=== PATIENT | female | born 1955 | race Caucasian/White ===

== ENCOUNTER 2017-06-04 12:23 | Day surgery (SDC) | payer BC ==
--- NOTE | 2017-05-31 11:42 | RADIOLOGY REPORT (SQ) ---
EXAM DESCRIPTION: CHEST PA/LATERAL COMPLETED DATE/TIME: 05/31/2017 11:31 am REASON FOR STUDY: PRE OP COMPARISON: None. EXAM PARAMETERS: NUMBER OF VIEWS: two views TECHNIQUE: Digital Frontal and Lateral radiographic views of the chest acquired. RADIATION DOSE: NA LIMITATIONS: none FINDINGS: LUNGS AND PLEURA: No opacities, masses or pneumothorax. No pleural effusion. MEDIASTINUM AND HILAR STRUCTURES: No masses or contour abnormalities. HEART AND VASCULAR STRUCTURES: Heart normal size. No evidence for failure. BONES: No acute findings. HARDWARE: None in the chest. OTHER: No other significant finding. IMPRESSION: NO SIGNIFICANT RADIOGRAPHIC FINDING IN THE CHEST. TECHNICAL DOCUMENTATION: JOB ID: [id number] [employer]- All Rights Reserved
[2017-05-31 11:47] LABS: ABSOLUTE EOSINOPHILS # (AUTO) 0.1 10^3/uL (0.0-0.6); ABSOLUTE LYMPHOCYTES (AUTO) 2.1 10^3/uL (0.5-4.7); ABSOLUTE MONOCYTES (AUTO) 0.6 10^3/uL (0.1-1.4); ABSOLUTE NEUT (AUTO) 3.3 10^3/uL (1.7-8.2); BASOPHILS % (AUTO) 0.5 % (0-2); EOSINOPHILS % (AUTO) 1.6 % (0-6); HEMATOCRIT 37.2 % (36.0-47.0); HEMOGLOBIN 12.5 g/dL (12.0-15.5); HGB HCT DIFFERENCE 0.3; LYMPHOCYTES % (AUTO) 33.6 % (13-45); MEAN CORPUSCULAR HEMOGLOBIN 31.3 pg (27.0-33.4); MEAN CORPUSCULAR HGB CONC 33.7 g/dL (32.0-36.0); MEAN CORPUSCULAR VOLUME 93 fl (80-97); MONOCYTES % (AUTO) 10.4 % (3-13); RED CELL DISTRIBUTION WIDTH 12.8 % (11.5-14.0); SEGMENTED NEUTROPHILS % (AUTO) 53.9 % (42-78); WHITE BLOOD COUNT 6.1 10^3/uL (4.0-10.5)
[2017-05-31 12:02] LABS: APPEARANCE,URINE CLOUDY; BILIRUBIN,URINE NEGATIVE (NEGATIVE); GLUCOSE, URINE NEGATIVE (NEGATIVE); KETONES,URINE NEGATIVE (NEGATIVE); LEUKOCYTE ESTERASE,URINE SMALL (NEGATIVE); NITRITE,URINE NEGATIVE (NEGATIVE); PROTEIN,URINE NEGATIVE (NEGATIVE); URINE SPECIFIC GRAVITY 1.023; UROBILINOGEN,URINE NEGATIVE mg/dL (<2.0)
[2017-05-31 12:11] LABS: ANION GAP 12 (5-19); BLOOD UREA NITROGEN 18 mg/dL (7-20); CALCIUM 9.7 mg/dL (8.4-10.2); CARBON DIOXIDE 27 mmol/L (22-30); CHLORIDE 99 mmol/L (98-107); CREATININE RESULT 0.65 mg/dL (0.52-1.25); GLUCOSE 83 mg/dL (75-110); SODIUM 138.1 mmol/L (137-145)
--- NOTE | 2017-05-31 20:24 | EKG REPORT ---
SEVERITY:- OTHERWISE NORMAL ECG - SINUS RHYTHM LEFT AXIS DEVIATION : Confirmed by: Hayden Evans MD 31-May-2017 20:24:06
[~2017-06-04 12:23] MED LIST: CEFAZOLIN 2 GM/D5W RTU 2 GM/50 ML RTUPB IV PRN; CEFAZOLIN SODIUM 2 GM in DEXTROSE 5%-WATER 100 ML IV PRN; LACTATED RINGERS 1000 ML IV PRN; LIDOCAINE 0.5% INJ-PF (5 MG/ML) 50 ML SDV SUBCUT PRN
[2017-06-04] MEDS ORDERED: BUPIVACAINE HCL 0.5 % INJ/PF 30 ML SDV ONE (13:00)
[2017-06-04] MEDS ORDERED: MIDAZOLAM 2 MG/2 ML INJ ONE (14:11)
[2017-06-04] MEDS ORDERED: FENTANYL CITRATE INJ/PF 100 MCG/2 ML AMPUL ONE ×2 (14:11)
[2017-06-04] MEDS ORDERED: PROPOFOL INJ 200 MG/20 ML VIAL IV ONE ×2 (14:12→15:10)
[2017-06-04] MEDS ORDERED: ONDANSETRON HCL INJ/PF 4 MG/2 ML SDV ONE (14:12)
[2017-06-04] MEDS ORDERED: LIDOCAINE 0.5% INJ-PF (5 MG/ML) 50 ML SDV ONE (14:49)
[2017-06-04] MEDS ORDERED: FENTANYL CITRATE INJ/PF 100 MCG/2 ML AMPUL IV PRN ×2 (15:13)
[2017-06-04] MEDS ORDERED: MORPHINE SULFATE 10 MG/ML INJ IV PRN (15:13)
[2017-06-04] MEDS ORDERED: PROMETHAZINE HCL INJ 25 MG/1 ML VIAL IV PRN (15:13)
[2017-06-04] MEDS ORDERED: MEPERIDINE HCL/PF INJ 25 MG/1 ML DISP.SYRIN IV PRN (15:13)
[2017-06-04] MEDS ORDERED: DIPHENHYDRAMINE HCL 50 MG/ML VIAL IV PRN (15:13)
--- NOTE | 2017-06-04 16:08 | Brief Operative Note ---
BRIEF OPERATIVE REPORT DATE OF SURGERY: 06/04/17 TIME OF SURGERY: 16:07 PREOPERATIVE DIAGNOSIS: Left Ring Proximal Phalanx Intraarticular Fracture POSTOPERATIVE DIAGNOSIS: Same SURGEON: ERIKA MARCIAL FINDINGS: Articular Surface Remained intact COMPLICATIONS: None ESTIMATED BLOOD LOSS: Minimal TISSUE REMOVED OR ALTERED: None TECHNICAL PROCEDURE: ORIF Left Ring Intra-articular Proximal Phalanx Fracture
[2017-06-04] MEDS ORDERED: HYDROMORPHONE HCL INJ/PF 2 MG/ML AMPULE IV PRN (16:10)
[2017-06-04] MEDS ORDERED: OXYCODONE-ACETAMINOPHEN 5-325 MG TABLET PO PRN (16:10)
[2017-06-04] MEDS ORDERED: ONDANSETRON HCL INJ/PF 4 MG/2 ML SDV IV PRN (16:10)
--- NOTE | 2017-06-04 16:10 | PDOC DISCHARGE SUMMARY ---
Discharge Summary (SDC) - Discharge Final Diagnosis: ORIF Ring Proximal Phalanx Fracture Date of Surgery: 06/04/17 Discharge Date: 06/04/17 Condition: Good Treatment or Instructions: Schedule Follow Up w/ Dr. John Ibanez @ [facility] for Surgery to be seen in 10-14 days or as scheduled [place]: [place]: [place]: Keep splint clean/dry/intact. Ice and elevate May begin finger range of motion of small, index and thumb Stool softener of choice when on pain medication. Prescriptions: Oxycodone HCl/Acetaminophen [Percocet 5-325 mg Tablet] 1 - 2 tab PO ASDIR PRN # 40 tablet PRN Reason: Discharge Diet: As Tolerated Respiratory Treatments at Home: Deep Breathing/Coughing Discharge Activity: No Lifting Over 10 Pounds, No Lifting/Push/Pulling Report the Following to Your Physician Immediately: Fever over 101 Degrees, Redness, Swelling, Warmth, Increased Soreness
[2017-06-04 17:34] VITALS: BP 158/96
--- NOTE | 2017-06-04 17:47 | Operative Report ---
Operative Report DATE OF SURGERY: 06/04/17 PREOPERATIVE DIAGNOSIS: Left Ring Proximal Phalanx Intraarticular Fracture POSTOPERATIVE DIAGNOSIS: Same OPERATION: ORIF Left Ring Intra-articular Proximal Phalanx Fracture SURGEON: ERIKA MARCIAL ANESTHESIA: GA TISSUE REMOVED OR ALTERED: None ESTIMATED BLOOD LOSS: Minimal INTRAOPERATIVE FINDINGS: Articular Surface Remained intact PROCEDURE: Indication for above procedure: 61-year-old female who sustained a injury to her left ring finger. She was initially set up for operative intervention but subsequently canceled surgery. She obtained a second opinion because of increased and continued pain at that point she was sent back to me for further evaluation and treatment. We discussed treatment options including arthrodesis versus arthroplasty the joint decision was made to proceed with operative treatment which would likely be salvage procedure although patient was in agreement if internal fixation can be accomplished this would also be performed. Procedure In Detail: Patient was seen and evaluated in the preoperative holding area. The upper extremity was initialized and marked. Patient received 2g of Ancef IV for bacterial prophylaxis. Patient was taken back to the operative room where transferred to the operative table and placed under MAC anesthesia. Once they were adequately anesthetized a surgical team debriefing was performed ensuring all instrumentation was available, the surgical procedure was discussed with possible concerns reviewed. Under sterile technique a digital block was performed utilizing 10 cc of 50: 50 mixture of 0.5% Marcaine and 1% lidocaine without epinephrine. The upper extremity was prepped with chlorhexidine and alcohol and draped in a sterile fashion. A timeout was done identifying correct patient, procedure and extremity everyone in attendance agree with this and verbalized no concerns. The extremity was exsanguinated the tourniquet was inflated to 250 mmHg. Curvilinear skin incision was made over the PIP joint of the ring finger. Blunt dissection was performed any peripheral vasculature was carefully coagulated with bipolar cautery. I then elevated the skin flap and secured it with 4-0 nylon suture. The extensor mechanism was then split midline and retracted radially and ulnarly. I was then able to expose the articular surface. Patient had 3 main fragments with maintained articular surface and bony attachments proximally. Given this finding I felt patient would be better served with attempted open reduction internal fixation and if this failed could proceed with fusion in the future but ultimately internal fixation goes on to successful bone healing and she is likely to have better pain relief and function. I then proceeded with internal fixation. With a [place] elevator I carefully elevated the articular fragments there was some areas of callus and bone healing was provided more stability of the fracture fragments. I did not attempt to completely free the fracture fragments to avoid possible postoperative avascular necrosis. The radial and ulnar condyles within reduced and a 0.026 K wire was placed from the ulnar to the radial direction. I then placed a second 0.026 K wire from the dorsal articular surface into the main proximal phalanx shaft which provided good axial stability of the entire construct. Lastly an additional 0.026 K wire was placed obliquely essentially acting as a blocking pin to avoid collapse of my fracture fragments. Passive range of motion was then performed there was no evidence of crepitus. Patient was awoken from MAC anesthesia and had near full flexion of the PIP joint. There is no evidence of rotational abnormality with tenodesis or with the patient active motion under LMAC. The wound was then copiously irrigated with normal saline. The extensor mechanism was closed with interrupted 4-0 FiberWire suture tourniquet was deflated any peripheral vasculature was coagulated with bipolar cautery until the wound was dry. Skin was closed with interrupted 4-0 nylon suture. Wound was dressed with Xeroform 4 x 4's and patient was placed in a volar resting splint incorporating the ring and middle finger leaving the small index and thumb free for motion. Sponge counts, instrument counts, needle counts counts were correct. Patient was then awoken from anesthesia. Transferred from the operating room table to the operating room stretcher. There was no intraoperative complications patient tolerated procedure well stable to PACU. Postoperative plan: Patient will follow-up in the office in 10-14 days at which point we will obtain radiographs. At patient's follow-up visit she will be set up for occupational therapy to be fitted for a thermoplastic splint maintaining PIP joint flexion at 30.
--- NOTE | 2017-06-04 18:22 | RADIOLOGY REPORT (SQ) ---
EXAM DESCRIPTION: NO CHG FLUORO; FINGER LEFT COMPLETED DATE/TIME: 06/04/2017 5:38 pm REASON FOR STUDY: ORIF LEFT RING FINGER COMPARISON: None. FLUOROSCOPY TIME: 50 seconds 2 Images saved to PACS LIMITATIONS: None. PROCEDURE: Pinning of a fracture of the 4th proximal phalanx. FINDINGS: Images document placement of pins in the 4th proximal phalanx. IMPRESSION: Internal fixation fracture of the 4th proximal phalanx. COMMENT: PQRS 6045F: Fluoroscopy time of the procedure is documented in the report. TECHNICAL DOCUMENTATION: JOB ID: [id number] [employer]- All Rights Reserved
--- NOTE | 2017-06-04 18:22 | RADIOLOGY REPORT (SQ) ---
EXAM DESCRIPTION: NO CHG FLUORO; FINGER LEFT COMPLETED DATE/TIME: 06/04/2017 5:38 pm REASON FOR STUDY: ORIF LEFT RING FINGER COMPARISON: None. FLUOROSCOPY TIME: 50 seconds 2 Images saved to PACS LIMITATIONS: None. PROCEDURE: Pinning of a fracture of the 4th proximal phalanx. FINDINGS: Images document placement of pins in the 4th proximal phalanx. IMPRESSION: Internal fixation fracture of the 4th proximal phalanx. COMMENT: PQRS 6045F: Fluoroscopy time of the procedure is documented in the report. TECHNICAL DOCUMENTATION: JOB ID: [id number]- All Rights Reserved
== END 2017-06-04 17:37 | disposition home or self-care (01) ==
LOC: OROUT 12:23
PROVIDERS: ATTEND Orthopaedic Surgery
PROC: 0PSV04Z Reposition Left Finger Phalanx with Internal Fixation Device, Open Approach (ICD-10-PCS; principal; 2017-06-04 15:00)
DX: S62.615A Displaced fracture of proximal phalanx of left ring finger, initial encounter for closed fracture (principal); X58.XXXA Exposure to other specified factors, initial encounter; M79.645 Pain in left finger(s); E03.9 Hypothyroidism, unspecified; E78.00 Pure hypercholesterolemia, unspecified; K21.9 Gastro-esophageal reflux disease without esophagitis; F41.9 Anxiety disorder, unspecified; F32.9 Major depressive disorder, single episode, unspecified; Z79.899 Other long term (current) drug therapy; Z87.891 Personal history of nicotine dependence
CPT/HCPCS: 93005; 36415; 85025; 80048; 81001; 71020; 73140; 93010; 26735; C1769; J2250; J0690 ×2; J3010; J3490; J2405; J2704; 01830